=== PATIENT | female | born 1970 | race African-American/Black ===

== ENCOUNTER 2020-06-03 04:40 | Emergency (ER) | payer OTHER | END 2020-06-03 05:39 | disposition home or self-care (01) | LOC: ER 04:40 | DX: L97.829 Non-pressure chronic ulcer of other part of left lower leg with unspecified severity (principal); Z79.899 Other long term (current) drug therapy; Z79.01 Long term (current) use of anticoagulants; Z88.8 Allergy status to other drugs, medicaments and biological substances ==